=== PATIENT | female | born 1960 | race African-American/Black ===

== ENCOUNTER 2020-11-08 20:29 | Emergency (ER) | payer OTHER ==
[2020-11-08 23:18] LABS: Absolute Lymphocytes (CBC) 1.9 K/uL (0.7-4.9); Basophils % 0.4 % (0-1.3); Hematocrit 40.2 % (36.0-45.0); Lymphocytes % 38.3 % (15.3-44.8); MPV 8.5 fL (7.6-11.3); RBC Red Blood Cell Count 4.46 M/uL (3.86-4.86)
[2020-11-09 00:20] LABS: BUN Blood Urea Nitrogen 7 mg/dL (7-18); Bicarbonate 27 mmol/L (21-32); Glucose Level 88 mg/dL (74-106); Sodium Level 142 mmol/L (136-145); Troponin (Emerg Dept Use Only) < 0.02 ng/mL (0.0-0.045)
[2020-11-09 00:22] LABS: Potassium 3.4 mmol/L (3.5-5.1)
--- NOTE | 2020-11-09 00:45 | ER ---
Nurse's Notes [facility] Name: Rudolph Juarez Age: 60 yrs Sex: Female : 1960 Arrival Date: 11/08/2020 Time: 20:31 Bed 7 Private MD: Diagnosis: Hypertension Presentation: 11/08 20:50 Chief complaint: Patient states: BP elevated 186/105 today. Recently taken off bistolic ll1 and started on metoprolol. No ANTHONY or CP. Coronavirus screen: Client denies travel out of the [place] in the last 14 days. At this time, the client does not indicate any symptoms associated with coronavirus-19. Ebola Screen: Patient denies travel to an Ebola-affected area in the 21 days before illness onset. Initial Sepsis Screen: Does the patient meet any 2 criteria? No. Patient's initial sepsis screen is negative. Does the patient have a suspected source of infection? No. Patient's initial sepsis screen is negative. Risk Assessment: Do you want to hurt yourself or someone else? Patient reports no desire to harm self or others. Onset of symptoms was November 08, 2020. 20:50 Method Of Arrival: Ambulatory ll1 20:50 Acuity: HECTOR 3 ll1 Historical: - Allergies: 20:55 Metoprolol Tartrate; ll1 20:55 Keflex; ll1 20:55 Xzdsvlr-Sra-Imp Reductase Inhibitors; ll1 - PMHx: 20:55 Hypertension; High Cholesterol; ll1 - PSHx: 20:55 Hysterectomy; ll1 - Immunization history:: Client reports receiving the 2nd dose of the Covid vaccine, Flu vaccine is up to date. - Social history:: Smoking status: Patient denies any tobacco usage or history of. - Family history:: not pertinent. - Hospitalizations: : No recent hospitalization is reported. Screenin:51 Abuse screen: Denies threats or abuse. Denies injuries from another. Nutritional mg2 screening: No deficits noted. Tuberculosis screening: No symptoms or risk factors identified. Fall Risk IV access (20 points). Assessment: 22:45 General: Appears in no apparent distress. comfortable, Behavior is calm, cooperative, jb4 appropriate for age. Pain: Denies pain. Neuro: Level of Consciousness is awake, alert, obeys commands, Oriented to person, place, time, situation. Cardiovascular: Patient's skin is warm and dry. Respiratory: Airway is patent Respiratory effort is even, unlabored, Respiratory pattern is regular, symmetrical. GI: No signs and/or symptoms were reported involving the gastrointestinal system. : No signs and/or symptoms were reported regarding the genitourinary system. EENT: No signs and/or symptoms were reported regarding the EENT system. Derm: Skin is intact, Skin is dry, Skin is normal, Skin temperature is warm. 22:45 Musculoskeletal: Circulation, motion, and sensation intact. Range of motion: intact in jb4 all extremities. 11/09 00:00 Reassessment: Patient appears in no apparent distress at this time. Patient and/or jb4 family updated on plan of care and expected duration. Pain level reassessed. Patient is alert, oriented x 3, equal unlabored respirations, skin warm/dry/pink. Vital Signs: 11/08 20:50 BP 165 / 88; Pulse 76; Resp 16; Temp 97.0; Pulse Ox 98% ; Weight 70.31 kg; Height 5 ft. ll1 5 in. (165.10 cm); Pain 0/10; 11/09 00:30 BP 186 / 99; Pulse 77; Resp 16; Pulse Ox 100% on R/A; jb4 11/08 20:50 Body Mass Index 25.79 (70.31 kg, 165.10 cm) ll1 ED Course: 11/08 20:31 Patient arrived in ED. cl3 20:53 Triage completed. ll1 20:55 Arm band placed on. ll1 22:32 Anirudh Soto MD is Attending Physician. rn 22:33 Bigg Alfonso RN is Primary Nurse. jb4 23:20 Inserted saline lock: 20 gauge in right antecubital area, using aseptic technique. mg2 Blood collected. 23:51 Patient has correct armband on for positive identification. Pulse ox on. NIBP on. mg2 23:51 No provider procedures requiring assistance completed. mg2 11/09 00:55 IV discontinued, intact, bleeding controlled, No redness/swelling at site. Pressure jb4 dressing applied. 10:13 CT Head Brain wo Cont In Process Unspecified. EDMS Administered Medications: 00:54 Drug: Valium (diazepam) 2 mg Route: PO; jb4 00:54 Follow up: Response: Medication administered at discharge. jb4 Outcome: 00:45 Discharge ordered by . rn 00:54 Discharged to home ambulatory, with family. jb4 00:54 Condition: stable 00:54 Discharge instructions given to patient, Instructed on discharge instructions, follow up and referral plans. Demonstrated understanding of instructions, follow-up care. 00:55 Patient left the ED. jb4 Signatures: Dispatcher [employer] EDMS Anirudh Soto MD MD rn Bryson, James, RN RN jb4 Dieudonne Rai RN Jinny Silva cl3 Eder Queen RN RN ll1
--- NOTE | 2020-11-09 00:45 | EDPHYS ---
Physician Documentation [facility] Name: Rudolph Juarez Age: 60 yrs Sex: Female : 1960 Arrival Date: 11/08/2020 Time: 20:31 Bed 7 Private MD: ED Physician Anirudh Soto HPI: 11/08 23:21 This 60 yrs old Black Female presents to ER via Ambulatory with complaints of High rn Blood Pressure. 23:21 The patient has elevated blood pressure and discovered this at home. Onset: The rn symptoms/episode began/occurred at an unknown time. Modifying factors: The symptoms are aggravated by discontinuation of meds, The symptoms are alleviated by prescription meds. Associated signs and symptoms: The patient has no apparent associated signs or symptoms, Pertinent negatives: chest pain, dizziness, dyspnea, headache, lightheadedness, nausea, visual changes, vomiting, weakness. Severity of symptoms: At its worst the blood pressure was moderate, in the emergency department the blood pressure is unchanged. The patient has experienced similar episodes in the past. The patient has been recently seen by a physician:. Reports recently had her BP meds changed from bystolic to metoprolol, and not working, noted high blood pressure at home, but insurance not covering her bystolic. No headache/chest pain/abd pain. No focal neuro complaints. . Historical: - Allergies: 20:55 Metoprolol Tartrate; ll1 20:55 Keflex; ll1 20:55 Lwturui-Rfw-Hzz Reductase Inhibitors; ll1 - PMHx: 20:55 Hypertension; High Cholesterol; ll1 - PSHx: 20:55 Hysterectomy; ll1 - Immunization history:: Client reports receiving the 2nd dose of the Covid vaccine, Flu vaccine is up to date. - Social history:: Smoking status: Patient denies any tobacco usage or history of. - Family history:: not pertinent. - Hospitalizations: : No recent hospitalization is reported. ROS: 23:21 Constitutional: Negative for fever, chills, and weight loss, Eyes: Negative for injury, rn pain, redness, and discharge, Neck: Negative for injury, pain, and swelling, Cardiovascular: Negative for chest pain, palpitations, and edema, Respiratory: Negative for shortness of breath, cough, wheezing, and pleuritic chest pain, Abdomen/GI: Negative for abdominal pain, nausea, vomiting, diarrhea, and constipation, Back: Negative for injury and pain, MS/Extremity: Negative for injury and deformity, Skin: Negative for injury, rash, and discoloration, Neuro: Negative for headache, weakness, numbness, tingling, and seizure. 23:21 All other systems are negative. Exam: 23:21 Constitutional: This is a well developed, well nourished patient who is awake, alert, rn and in no acute distress. Ambulatory to room without difficulty or distress. Head/Face: Normocephalic, atraumatic. Eyes: Pupils equal round and reactive to light, extra-ocular motions intact. Lids and lashes normal. Conjunctiva and sclera are non-icteric and not injected. Cornea within normal limits. Periorbital areas with no swelling, redness, or edema. Neck: Trachea midline, no masses palpated, and no cervical lymphadenopathy. Supple, full range of motion without nuchal rigidity, or vertebral point tenderness. No Meningismus. Cardiovascular: Regular rate and rhythm. No pulse deficits. Respiratory: No increased work of breathing, no retractions or nasal flaring. Abdomen/GI: soft, non-tender Skin: Warm, dry with normal turgor. Normal color with no rashes, no lesions, and no evidence of cellulitis. MS/ Extremity: Pulses equal, no cyanosis. Neurovascular intact. Full, normal range of motion. Equal circumference. Neuro: Awake and alert, GCS 15, oriented to person, place, time, and situation. Cranial nerves II-XII grossly intact. Motor strength 5/5 in all extremities. Sensory grossly intact. Cerebellar exam normal. Normal gait. 11/09 00:11 ECG was reviewed by the Attending Physician. rn Vital Signs: 11/08 20:50 BP 165 / 88; Pulse 76; Resp 16; Temp 97.0; Pulse Ox 98% ; Weight 70.31 kg; Height 5 ft. ll1 5 in. (165.10 cm); Pain 0/10; 11/09 00:30 BP 186 / 99; Pulse 77; Resp 16; Pulse Ox 100% on R/A; jb4 11/08 20:50 Body Mass Index 25.79 (70.31 kg, 165.10 cm) ll1 MDM: 11/08 22:32 Patient medically screened. rn 11/09 00:40 Differential diagnosis: hypertensive crisis, Malignant HTN, asymptomatic HTN. Data rn reviewed: vital signs, nurses notes, lab test result(s), EKG, radiologic studies, CT scan, and as a result, I will discharge patient. Counseling: I had a detailed discussion with the patient and/or guardian regarding: the historical points, exam findings, and any diagnostic results supporting the discharge/admit diagnosis, lab results, radiology results, the need for outpatient follow up, to return to the emergency department if symptoms worsen or persist or if there are any questions or concerns that arise at home. Response to treatment: the patient's symptoms have markedly improved after treatment, and as a result, I will discharge patient. Special discussion: I discussed with the patient/guardian in detail that at this point there is no indication for admission to the hospital. It is understood, however, that if the symptoms persist or worsen the patient needs to return immediately for re-evaluation. Based on the history and exam findings, there is no indication for further emergent testing or inpatient evaluation. I discussed with the patient/guardian the need to see the primary care provider for further evaluation of the symptoms. ED course: Pt with BP improvement without medication, still a little anxious, requests valium to sleep, gave small dose, has had valium before. No end organ damage from elevated BP, and after long discussion regarding BP and BP management, patient much more comfortable and not as anxious. Will f/u with her PCP for further med control. Return precautions given and understood. . 11/08 23:00 Order name: CBC with Diff rn 11/08 23:00 Order name: Basic Metabolic Panel rn 11/08 23:00 Order name: Troponin (emerg Dept Use Only) rn 11/08 23:19 Order name: CBC with Automated Diff; Complete Time: 00:37 EDMS 11/09 00:22 Order name: Basic Metabolic Panel; Complete Time: 00:37 EDMS 11/09 00:22 Order name: Troponin (Emerg Dept Use Only); Complete Time: 00:37 EDMS 11/08 23:00 Order name: CT Head Brain wo Cont rn 11/08 23:00 Order name: IV Start; Complete Time: 23:08 rn 11/08 23:00 Order name: EKG; Complete Time: 23:01 rn 11/08 23:00 Order name: EKG - Nurse/Tech; Complete Time: 23:18 rn EC:11 Rate is 67 beats/min. Rhythm is regular. QRS [place] is Normal. [place] interval is normal. QRS rn interval is normal. QT interval is normal. No Q waves. T waves are Normal. No ST changes noted. Clinical impression: NSR, LVH. Interpreted by me. Reviewed by me. Administered Medications: 00:54 Drug: Valium (diazepam) 2 mg Route: PO; jb4 00:54 Follow up: Response: Medication administered at discharge. jb4 Disposition: 11/09/20 00:45 Discharged to Home. Impression: Hypertension. - Condition is Stable. - Discharge Instructions: Hypertension. - Medication Reconciliation Form, Thank You Letter, Antibiotic Education, Prescription Opioid Use form. - Follow up: Private Physician; When: As needed; Reason: Recheck today's complaints, Re-evaluation by your physician. - Problem is new. - Symptoms have improved. Signatures: Dispatcher [employer] EDMS Anirudh Soto MD MD rn Bryson, James RN NAHUM jb4 Eder Queen RN RN ll1 Corrections: (The following items were deleted from the chart) 00:55 00:45 11/09/2020 00:45 Discharged to Home. Impression: Hypertension. Condition is jb4 Stable. Forms are Medication Reconciliation Form, Thank You Letter, Antibiotic Education, Prescription Opioid Use. Follow up: Private Physician; When: As needed; Reason: Recheck today's complaints, Re-evaluation by your physician. Problem is new. Symptoms have improved. rn
[2020-11-09] MEDS ORDERED: DIAZEPAM 2 MG TABLET ONE (01:06)
[2020-11-09 01:18] VITALS: TEMP 97
[2020-11-09 01:19] VITALS: BP 186/99; O2SAT 100
--- NOTE | 2020-11-09 11:11 | RAD REPORT ---
EXAM DESCRIPTION: CT Head Brain Wo Cont CLINICAL HISTORY: 60 years Female hypertension TECHNIQUE: Contiguous axial CT images obtained through the brain without IV contrast. Coronal and sa gittal reformats also provided. This CT exam was performed according to our departmental dose-optimization program, which includes on e or more of the following dose reduction techniques: automated exposure control, adjustment of the m A and/or kV according to patient size, and/or use of iterative reconstruction technique. COMPARISON: No prior exams provided for comparison. FINDINGS: There is no intracranial hemorrhage, extra-axial collection, or acute transcortical infarc tion. Scattered foci of low attenuation within the periventricular and subcortical white matter are n onspecific but compatible with chronic microvascular disease. The ventricles are normal in size and contour without mass-effect or midline shift. Osseous structures are normal. The paranasal sinuses and mastoid air cells are clear. IMPRESSION: No acute intracranial abnormalities. Electronically signed by: Lashae Mckeon MD 11/09/2020 12:12 AM CDT Due to temporary technical issues with the PACS/Fluency reporting system, reports are being signed by the in house radiologist without review as a courtesy to ensure prompt reporting. The interpreting r adiologist is fully responsible for the content of the report.
== END 2020-11-09 00:55 | disposition home or self-care (01) ==
LOC: ER 20:29
DX: I10 Essential (primary) hypertension (principal); E78.00 Pure hypercholesterolemia, unspecified; Z88.8 Allergy status to other drugs, medicaments and biological substances
CPT/HCPCS: 36415; 70450; 80048; 84484; 85025; 93005; 99284